=== PATIENT | female | born 2000 | race African-American/Black ===

== ENCOUNTER 2024-08-13 16:35 | Emergency (ER) | payer MEDICAID ==
[~2024-08-13] VITALS: Ht 167.6 cm; Wt 62.0 kg
[2024-08-13 16:39] VITALS: BP 146/72; PULSE 88; RESP 19; TEMP 37; O2SAT 98
[2024-08-13] MEDS: ACETAMINOPHEN 325MG TABLET PO ONE (18:30)
[2024-08-13] MEDS ORDERED: IBUP-2028 MT (18:34)
== END 2024-08-13 19:10 | disposition home or self-care (01) ==
LOC: ER 16:35
DX: M54.9 Dorsalgia, unspecified (principal); V89.2XXA Person injured in unspecified motor-vehicle accident, traffic, initial encounter; Y93.89 Activity, other specified; Y92.89 Other specified places as the place of occurrence of the external cause; Y99.8 Other external cause status
CPT/HCPCS: 99283